=== PATIENT | female | born 1990 | race African-American/Black ===

== ENCOUNTER 2018-02-11 02:27 | Observation (INO) | payer MEDICAID, OTHER ==
[~2018-02-11] VITALS: Ht 157.5 cm; Wt 51.7 kg
[2018-02-11 03:01] LABS: CLARITY URINE CLEAR (CLEAR); COLOR URINE YELLOW (YELLOW); KETONES URINE NEGATIVE (NEGATIVE); LEUKOCYTE ESTERASE URINE NEGATIVE (NEGATIVE); NITRITE URINE NEGATIVE (NEGATIVE); OCCULT BLOOD URINE NEGATIVE (NEGATIVE); PH URINE 6.5 (4.5-8.0); PROTEIN URINE NEGATIVE (NEGATIVE); UROBILINOGEN URINE 0.2 E.U./dL (0.2-1.0)
[2018-02-11] MEDS ORDERED: PREN1TAB78 MT (03:09)
== END 2018-02-11 03:19 | disposition home or self-care (01) ==
LOC: L&D 02:27
PROVIDERS: ADMIT Specialist; ATTEND Specialist
DX: O26.892 Other specified pregnancy related conditions, second trimester (principal); R10.9 Unspecified abdominal pain; Z3A.26 26 weeks gestation of pregnancy
CPT/HCPCS: 81003; 99281; G0378